=== PATIENT | female | born 1980 | race Caucasian/White ===

== ENCOUNTER 2018-03-30 15:20 | Emergency (ER) | payer OTHER ==
[2018-03-30] MEDS ORDERED: Lorazepam 2 MG/ML VIAL ONE (15:29)
[2018-03-30 15:50] LABS: #Basophils 0.1 thou/uL (0.0-0.2); #Lymphocytes 1.7 thou/uL (1.20-3.40); #Monocytes 0.2 thou/uL (0.11-0.59); #Neutrophils 6.1 thou/uL (1.40-6.50); %Basophils 0.7 % (0.0-1.0); %Eosinophils 0.3 % (0.0-10.0); %Lymphocytes 20.6 % (21.0-51.0); %Monocytes 2.8 % (0.0-10.0); %Neutrophils 75.6 % (42.0-75.0); Hemoglobin 12.9 g/dL (12.0-16.0); Mean Corpuscular Hemoglobin 31.8 pg (27.0-31.0); Mean Corpuscular Volume 96.2 fl (81.0-99.0); Mean Platelet Volume 7.6 fL (7.4-10.4); Platelet Count 183 thou/uL (130-400); RBC Distribution Width 11.9 % (11.5-14.5); Red Blood Cell (RBC) Count 4.05 mill/uL (4.20-5.40); White Blood Cell (WBC) Count 8.1 thou/uL (4.8-10.8)
[2018-03-30 16:05] LABS: Acetaminophen Less than 6.0 mcg/mL (10.0-30.0); Alcohol Less than 10 mg/dL (Less than 10); Salicylate Less than 8.0 mg/dL (15.0-30.0)
[2018-03-30 16:06] LABS: ALT (SGPT) 13 U/L (8-55); AST (SGOT) 12 U/L (5-34); Alkaline Phosphatase 95 U/L (40-150); Anion Gap 16 mmol/L (10-20); BUN (Urea Nitrogen) 19 mg/dL (7.0-18.7); Bilirubin, Total 0.2 mg/dL (0.2-1.2); Calc. Creatinine Clearance 0 mL/min (70-130); Carbon Dioxide 16 mmol/L (22-29); Chloride 113 mmol/L (98-107); Estimated GFR-MDRD 76; Globulin 2.6 g/dL (2.4-3.5); Glucose 91 mg/dL (70-105); Potassium 4.3 mmol/L (3.5-5.1); Protein, Total 6.6 g/dL (6.0-8.3); Sodium 141 mmol/L (136-145)
--- NOTE | 2018-03-30 16:10 | CT ---
CT BRAIN WITHOUT CONTRAST: 03/30/18 HISTORY: Seizures. History of traumatic brain injury. COMPARISON: None. FINDINGS: no acute focal hemorrhage or infarct. No midline shift or mass effect. Ventricular size and extra-axi al CSF spaces are normal. The calvarium is intact. IMPRESSION: No acute intracranial abnormality. POS: [facility]
[2018-03-30 16:11] LABS: CKMB 0.5 ng/mL (0-6.6); Troponin I Less than 0.010 ng/mL (< 0.028)
[2018-03-30] MEDS ORDERED: levETIRAcetam In NaCl (Iso-Os) 1,000 MG in Premix Bag 1 BAG IVPB SCH (16:15)
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
--- NOTE | 2018-03-30 18:19 | RAD ---
FRONTAL AND LATERAL IMAGING OF THE THORACIC SPINE 03/30/18 COMPARISON: None. HISTORY: Fall, seizures. FINDINGS: Multilevel fusion hardware seen at the thoracolumbar junction, including hardware associated with T10 , T11, T12 and L2. This hardware is not completely visualized inferiorly. Imaged portions of the hard jorgensen demonstrate no evidence for failure. Thoracic pedicles appear intact on frontal imaging. Radiopa que tubing overlies the right lung apex. Cervicothoracic junction appears intact. IMPRESSION: No acute findings. POS: [facility]
--- NOTE | 2018-03-30 18:22 | RAD ---
THREE VIEWS OF THE LUMBAR SPINE: 03/30/18 COMPARISON: None. HISTORY: Fall, seizures. FINDINGS: Extensive postoperative hardware noted at the thoracolumbar junction including bilateral pedicle scre ws at T10, T11, T12, L2 and L3 with vertically oriented interlocking rods. A chronic burst fracture i s noted at L1. There is disc space narrowing and degenerative end plate changes at the L5-S1 level. No definite acute fracture is apparent on this examination. IMPRESSION: Findings suggesting an old fracture of the L1 vertebral body with hardware spanning the vertebral bod ies above and below as detailed above. No acute findings are seen. POS: [facility]
[2018-03-30] MEDS ORDERED: Acetaminophen 500 MG TAB ONE (18:33)
== END 2018-03-30 18:44 | disposition home or self-care (01) ==
LOC: ERS 15:20
DX: R56.9 Unspecified convulsions (principal); E27.1 Primary adrenocortical insufficiency
CPT/HCPCS: 36415; 70450; 72072; 72100; 72125; 80053; 80177; 80307; 82553; 84146; 84484; 85025; 93005; 96361; 96365; 96375; J1642; J1953; J2060